=== PATIENT | male | born 1995 | race African-American/Black ===

== ENCOUNTER 2018-06-07 10:02 | Emergency (ER) | payer SELFPAY ==
[2018-06-07] MEDS ORDERED: DEXAMETHASONE 10 MG/ML VIAL ONE (10:25)
--- NOTE | 2018-06-07 11:01 | EDPHYS ---
Physician Documentation [facility] Name: Michelle Escalona Age: 23 yrs Sex: Male : 1995 Arrival Date: 06/07/2018 Time: 10:05 Bed 12 Private MD: None, None ED Physician Jus Bravo HPI: 06/07 10:15 This 23 yrs old Black Male presents to ER via Ambulatory with complaints of Sore Throat.jmm 10:15 The patient presents with sore throat. Onset: The symptoms/episode began/occurred jmm gradually, 2 day(s) ago. Associated signs and symptoms: Pertinent positives: earache. This is a 23 year old male with no chronic medical conditions that presents to the ED with sore throat and eachache beginning 2 days ago. Patient states she awoke this evening with worsening sore throat. Complains of subjective fever. . Historical: - Allergies: 10:09 No Known Allergies; tw2 - Home Meds: 10:09 None [Active]; tw2 - PMHx: 10:09 None; tw2 - PSHx: 10:09 None; tw2 - Immunization history:: Adult Immunizations up to date. - Social history:: Smoking status: Patient uses tobacco products, smokes one-half pack cigarettes per day. - Ebola Screening: : Patient denies travel to an Ebola-affected area in the 21 days before illness onset. ROS: 10:15 Eyes: Negative for injury, pain, redness, and discharge. jmm 10:15 Neck: Negative for injury, pain, and swelling, Cardiovascular: Negative for chest pain, palpitations, and edema, Respiratory: Negative for shortness of breath, cough, wheezing, and pleuritic chest pain, Abdomen/GI: Negative for abdominal pain, nausea, vomiting, diarrhea, and constipation. 10:15 Constitutional: Positive for fever. 10:15 ENT: Positive for ear pain, sore throat. 10:15 All other systems are negative. Exam: 10:15 Constitutional: This is a well developed, well nourished patient who is awake, alert, jmm and in no acute distress. Head/Face: atraumatic. 10:15 Neck: Trachea midline, Supple Chest/axilla: Normal chest wall appearance and motion. Cardiovascular: Regular rate and rhythm. No edema appreciated Respiratory: Normal respirations, no respiratory distress appreciated Abdomen/GI: Non distended, soft Skin: General appearance color normal MS/ Extremity: Moves all extremities, no obvious deformities appreciated, no edema noted to the lower extremities Neuro: Awake and alert, normal gait 10:15 ENT: TM's: erythema, that is mild, bilaterally. 10:15 ENT: Posterior pharynx: erythema, that is mild. Vital Signs: 10:08 BP 140 / 88; Pulse 76; Resp 18; Temp 98.6(O); Pulse Ox 99% on R/A; Pain 8/10; tw2 MDM: 10:15 Patient medically screened. [facility] 11:00 Differential diagnosis: pharyngitis, upper respiratory infection, viral syndrome. Data [facility] reviewed: vital signs, nurses notes, lab test result(s). Counseling: I had a detailed discussion with the patient and/or guardian regarding: the historical points, exam findings, and any diagnostic results supporting the discharge/admit diagnosis, lab results, the need for outpatient follow up, to return to the emergency department if symptoms worsen or persist or if there are any questions or concerns that arise at home. 11:00 Data interpreted: Pulse oximetry: on room air is 99 %. Interpretation: normal. [facility] 06/07 10:13 Order name: Flu tw 06/07 10:13 Order name: Strep tw2 06/07 10:55 Order name: Group A Streptococcus Rapid Sc; Complete Time: 11:00 EDMS 12 10:56 Order name: Influenza Screen (A ; Complete Time: 11:00 EDMS Administered Medications: 10:21 Drug: Dexamethasone 10 mg Route: IM; Site: right deltoid; tw2 11:09 Follow up: Response: No adverse reaction tw2 Disposition: 11:38 Co-signature as Attending Physician, Jus Bravo MD. rn Disposition: 06/07/18 11:01 Discharged to Home. Impression: Acute pharyngitis. - Condition is Stable. - Discharge Instructions: Pharyngitis. - Medication Reconciliation Form, Thank You Letter, Antibiotic Education, Prescription Opioid Use, Work release form form. - Follow up: Private Physician; When: 2 - 3 days; Reason: Recheck today's complaints, Continuance of care, Re-evaluation by your physician. Signatures: Dispatcher [employer] [facility] Puma Coats PA PA jmm Nieto, Roman, MD MD rn Fina Clemens RN RN tw2 Corrections: (The following items were deleted from the chart) 11:09 11:01 06/07/2018 11:01 Discharged to Home. Impression: Acute pharyngitis. Condition is tw2 Stable. Forms are Work release form, Medication Reconciliation Form, Thank You Letter, Antibiotic Education, Prescription Opioid Use. Follow up: Private Physician; When: 2 - 3 days; Reason: Recheck today's complaints, Continuance of care, Re-evaluation by your physician. chandrika
--- NOTE | 2018-06-07 11:01 | ER ---
Nurse's Notes [facility] Name: Michelle Escalona Age: 23 yrs Sex: Male : 1995 Arrival Date: 06/07/2018 Time: 10:05 Bed 12 Private MD: None, None Diagnosis: Acute pharyngitis Presentation: 06/07 10:07 Presenting complaint: Patient states: my throat started hurting Tuesday, and it just got tw2 worse, and my ears hurt. Transition of care: patient was not received from another setting of care. Onset of symptoms was June 07, 2018. Risk Assessment: Do you want to hurt yourself or someone else? Patient reports no desire to harm self or others. Initial Sepsis Screen: Does the patient meet any 2 criteria? No. Patient's initial sepsis screen is negative. Does the patient have a suspected source of infection? No. Patient's initial sepsis screen is negative. Care prior to arrival: None. 10:07 Method Of Arrival: Ambulatory tw2 10:07 Acuity: GLORIA 4 tw2 Historical: - Allergies: 10:09 No Known Allergies; tw2 - Home Meds: 10:09 None [Active]; tw2 - PMHx: 10:09 None; tw2 - PSHx: 10:09 None; tw2 - Immunization history:: Adult Immunizations up to date. - Social history:: Smoking status: Patient uses tobacco products, smokes one-half pack cigarettes per day. - Ebola Screening: : Patient denies travel to an Ebola-affected area in the 21 days before illness onset. Screenin:14 Abuse screen: Denies threats or abuse. Nutritional screening: No deficits noted. tw2 Tuberculosis screening: No symptoms or risk factors identified. Fall Risk None identified. Assessment: 10:13 General: Appears in no apparent distress. Behavior is calm, cooperative, appropriate tw2 for age. Pain: Complains of pain in right ear and left ear and throat. Neuro: Level of Consciousness is awake, alert, obeys commands, Oriented to person, place, time, situation. Cardiovascular: Patient's skin is warm and dry. Respiratory: Airway is patent Respiratory effort is even, unlabored, Respiratory pattern is regular, symmetrical, Breath sounds are clear. Respiratory:. GI: No signs and/or symptoms were reported involving the gastrointestinal system. : No signs and/or symptoms were reported regarding the genitourinary system. EENT: Throat is reddened Reports nasal congestion nasal discharge pain when swallowing. 11:08 Reassessment: Patient appears in no apparent distress at this time. No changes from tw2 previously documented assessment. Patient and/or family updated on plan of care and expected duration. Pain level reassessed. Patient is alert, oriented x 3, equal unlabored respirations, skin warm/dry/pink. Vital Signs: 10:08 BP 140 / 88; Pulse 76; Resp 18; Temp 98.6(O); Pulse Ox 99% on R/A; Pain 8/10; tw2 ED Course: 10:05 Patient arrived in ED. sb2 10:05 None, None is Private Physician. sb2 10: Triage completed. tw2 10:08 Arm band placed on. tw2 10: Fina Clemens, RN is Primary Nurse. tw2 10:10 Puma Coats PA is PHCP. [facility] 10:10 Jus Bravo MD is Attending Physician. [facility] 10:14 Bed in low position. Call light in reach. tw2 10:15 Strep Sent. tw2 10:15 Flu Sent. tw2 11:08 No provider procedures requiring assistance completed. Patient did not have IV access tw2 during this emergency room visit. Administered Medications: 10:21 Drug: Dexamethasone 10 mg Route: IM; Site: right deltoid; tw2 11:09 Follow up: Response: No adverse reaction tw2 Outcome: 11:01 Discharge ordered by . [facility] 11:08 Discharged to home ambulatory. tw2 11:08 Condition: stable 11:08 Discharge instructions given to patient, Instructed on discharge instructions, follow up and referral plans. Demonstrated understanding of instructions, follow-up care. 11:09 Patient left the ED. tw2 Signatures: Puma Coats PA PA jmm Wise, Tara, RN RN tw2 Yin Villareal sb2
== END 2018-06-07 11:09 | disposition home or self-care (01) ==
LOC: ER 10:02
DX: J02.9 Acute pharyngitis, unspecified (principal); F17.210 Nicotine dependence, cigarettes, uncomplicated
CPT/HCPCS: 87070; 87081; 87804; 96372; 99283; J1100

== ENCOUNTER 2021-10-22 17:59 | Emergency (ER) | payer SELFPAY ==
--- OUTSIDE RECORDS SUMMARY | 2021-10-22 18:02 | XMS REPORT | Continuity of Care Document ---
:[address] [facility] t Address [address] [place] [address] Care Team Providers Name Role Phone Provider, Urgent Care Attending Clinician Unavailable Tgean [employer] SPECIALIST Attending Clinician TEGAN Attending Clinician Unavailable Doctor Unassigned, Name Attending Clinician Unavailable Payers Payer Name Policy Type Policy Number Effective Date Expiration Date S ource Problems Condition Condition Condition Status Onset Resolution Last Treating Co mments Source Name Details Category Date Date Treatment Clinician Date No known No known Disease Unive rs active active ity of problems problems [facility] Allergies, Adverse Reactions, Alerts Allergy Allergy Status Severity Reaction(s) Onset Inactive Treating Comm ents Source Name Type Date Date Clinician NO KNOWN Drug Active Univers ALLERGIE Class ity of S [facility] Social History Social Habit Start Date Stop Date Quantity Comments Source Exposure to Not sure [facility] SARS-CoV-2 (event) [facility] Assigned At [birth year] [facility] 00:00:00 00:00:00 [facility] Smoking Status Start Date Stop Date Source Unknown if ever smoked [facility] Medications Ordered Filled Start Stop Current Ordering Indication Dosage Frequency Signature Comments Components Source Medication Medication Date Date Medication? Clinician (SIG) Name Name benzonatate 2018-0 Yes 100mg Take 1 Uni vers 100 mg 4-06 capsule by ity of capsule 00:00: mouth 3 [place] (three) Medical times Branch daily as needed for Cough. benzonatate 2018-0 Yes 100mg Take 1 Uni vers 100 mg 4-06 capsule by ity of capsule 00:00: mouth 3 [place] 00 (three) Medical times [place] daily as needed for Cough. benzonatate 2018-0 Yes 100mg Take 1 Uni vers 100 mg 4-06 capsule by ity of capsule 00:00: mouth 3 [place] [id number] (three) Medical times [place] daily as needed for Cough. Vital Signs Vital Name Observation Time Observation Value Comments Source Systolic blood 2020-09-14 15:02:00 124 mm[Hg] Univer sity of pressure [facility] Diastolic blood 2020-09-14 15:02:00 76 mm[Hg] Unive rsity of [facility] Heart rate 2020-09-14 15:02:00 75 /min [facility] Body temperature 2020-09-14 15:02:00 [facility]17 [facility] height 2020-09-14 15:02:00 172.7 cm [facility] Body weight 2020-09-14 15:02:00 106.595 kg [facility] BMI 2020-09-14 15:02:00 35.73 kg/m2 [facility] Oxygen saturation in 2020-09-14 15:02:00 97 /min [facility] Arterial blood by [facility] Pulse oximetry [place] Procedures Procedure Date / Time Performed Performing Clinician Sourc e POCT URINALYSIS 2020-09-14 15:22:00 [facility] POCT GRP A STREP 2020-09-14 15:18:00 [facility] (MOLECULAR) [facility] Encounters Start End Encounter Admission Attending Care Care Encounter Source Date/Time Date/Time Type Type Clinicians Facility Department ID 2020-09-14 2020-09-14 Urgent Provider, [facility] [id number] Univers 09:59:17 10:19:[address] [facility] [id number] ity [facility] [id number] Luis Armando as Professio [phone] Sd dical [facility] [address] 2020-09-14 2020-09-14 Outpatient R TEGAN [facility] [id number] Univers 10:00:00 10:00:00 [facility] 2020-09-14 2020-09-14 Letter Doctor RUSSELL [id number] Univers 00:00:00 00:00:00 (Out) Unassigned, JANA [id number] ity of [place] [facility] [id number] Luis Armando as [phone] [address] 2020-09-14 2020-09-14 Letter Doctor YVONNE [id number] Univers 00:00:00 00:00:00 (Out) Unassigned, JANA [id number] ity of [place] [facility] [id number] Luis Armando as [phone] [address] Results Test Description Test Time Test Comments Results Result Comments Source POCT GRP A STREP (MOLECULAR) 2020-09-14 15:26:00 Test Item Value Reference Range Interpretation Comme nts POCT GP A STREP (test code = Negative Negative - Negative 10476-4) SHI (test code = SHI) accurate development and interpretation of all internal controls Lab Interpretation (test code = Normal 73475-3) [facility] SPECIFIC [id number] 15:25:00 Test Item Value Reference Range Interpretation Comments POCT U SP GRAV (test 1.005 mg/dl 1.005-1.025 code = 3255) POCT PH U (test code = 7 mg/dl 5-8 3254) POCT U LEUK EST (test Negative Negative - code = 3263) Negative POCT U NIT (test code Negative Negative - = 3262) Negative POCT U PROT (test code Negative Negative - = 3259) Negative POCT U GLU (test code Negative Negative - = 3256) Negative POCT U KETONE (test Negative Negative - code = 3258) Negative POCT U UROBILI (test Normal 0.2-1 code = 3260) POCT U BILI (test code Negative Negative - = 3261) Negative POCT U BLD (test code Negative Negative - = 3257) Negative POCT U COLOR (test Yellow code = 3266) POCT U APPEAR (test Clear code = 3267) SHI (test code = SHI) accurate development and interpretation of all internal controls Lab Interpretation Normal (test code = 02218-0) [facility]
[2021-10-22 18:34] LABS: Urine Blood Negative (Negative); Urine Glucose Negative (Negative); Urine Protein Negative (Negative)
[2021-10-22 18:58] LABS: Urine Bacteria NONE SEEN /HPF (NONE SEEN); Urine RBC NONE SEEN /HPF (NONE SEEN)
[2021-10-22 19:01] LABS: Hematocrit 42.9 % (39.6-49.0); Lymphocytes % 28.9 % (15.3-44.8); MPV 10.3 fL (7.6-11.3); RBC Red Blood Cell Count 4.93 M/uL (4.33-5.43)
[2021-10-22 19:18] LABS: BUN Blood Urea Nitrogen 17 mg/dL (7-18); Bicarbonate 29 mmol/L (21-32); Glucose Level 92 mg/dL (74-106); Potassium 3.8 mmol/L (3.5-5.1); Sodium Level 137 mmol/L (136-145)
--- NOTE | 2021-10-22 19:54 | RAD REPORT ---
EXAM DESCRIPTION: US - Scrotum Testicles - 10/22/2021 7:44 pm CLINICAL HISTORY: Testicular pain COMPARISON: None FINDINGS: Right testicle measures 4.8 x 2 x 3 centimeters. Echotexture is homogeneous. Normal blood flow Left testicle measures 4.4 x 2.1 x 2.7 centimeters. Echotexture is homogeneous. Normal blood flow The epididymides are normal in size and echotexture. Normal blood flow is seen. 3 millimeter left spermatocele Increased echogenicity is present within the right inguinal region IMPRESSION: Increased echogenicity is present within the right inguinal region suspicious for a fat containing hernia
--- NOTE | 2021-10-22 20:10 | EDPHYS ---
Physician Documentation [facility] Name: Michelle Escalona Age: 26 yrs Sex: Male : 1995 Arrival Date: 10/22/2021 Time: 18:02 Bed 19 Private MD: ED Physician Ramos Corado HPI: 10/22 18:50 This 26 yrs old Black Male presents to ER via Ambulatory with complaints of Groin Pain. la1 18:50 Onset: The symptoms/episode began/occurred 1 week(s) ago. Associated signs and la1 symptoms: Pertinent negatives: dysuria, fever, vomiting. Modifying factors: The patient symptoms are alleviated by nothing, the patient symptoms are aggravated by nothing. The patient has experienced a previous episode, approximately 10 years ago. Pt reports "burning" in testicular area, urinary frequency. Similar episode 10 years ago that resolved spontaneously. Historical: - Allergies: 18:13 No Known Allergies; ab2 - PMHx: 18:13 None; ab2 - PSHx: 18:13 None; ab2 - Immunization history:: Adult Immunizations up to date. - Social history:: Smoking status: Patient reports the use of cigarette tobacco products, smokes one pack cigarettes per day. ROS: 18:52 Constitutional: Negative for fever, chills, and weight loss, Eyes: Negative for injury, la1 pain, redness, and discharge, ENT: Negative for injury, pain, and discharge, Neck: Negative for injury, pain, and swelling, Cardiovascular: Negative for chest pain, palpitations, and edema, Respiratory: Negative for shortness of breath, cough, wheezing, and pleuritic chest pain. 18:52 MS/Extremity: Negative for injury and deformity, Skin: Negative for injury, rash, and discoloration, Neuro: Negative for headache, weakness, numbness, tingling, and seizure. 18:52 Abdomen/GI: Positive for abdominal pain, Negative for nausea and vomiting, diarrhea, constipation. 18:52 : Positive for testicular pain Exam: 18:52 Constitutional: This is a well developed, well nourished patient who is awake, alert, la1 and in no acute distress. Head/Face: Normocephalic, atraumatic. Eyes: Pupils equal round and reactive to light, ENT: Mucous membranes moist. Neck: Supple, full range of motion without nuchal rigidity, or vertebral point tenderness. No Meningismus. Chest/axilla: Normal chest wall appearance and motion. Nontender with no deformity. No lesions are appreciated. Cardiovascular: Regular rate and rhythm with a normal S1 and S2. No gallops, murmurs, or rubs. Normal PMI, no JVD. No pulse deficits. Respiratory: Lungs have equal breath sounds bilaterally, clear to auscultation Abdomen/GI: Soft, non-tender, with normal bowel sounds. Skin: Warm, dry with normal turgor. Normal color with no rashes, no lesions, and no evidence of cellulitis. MS/ Extremity: Pulses equal, no cyanosis. Neurovascular intact. Full, normal range of motion. 18:52 : Male external genitalia: normal, Circumcision noted. cremasteric reflex present right, present left, erythema, is absent, penile discharge, is absent, swelling: is not appreciated, tenderness, is not appreciated, ulceration, is not present. Vital Signs: 18:09 BP 139 / 82; Pulse 84; Resp 17; Temp 97.7; Pulse Ox 99% on R/A; Weight 97.52 kg; Height ab2 5 ft. 8 in. (172.72 cm); Pain 8/10; 19:17 BP 133 / 72; Pulse 71; Resp 16; Pulse Ox 99% on R/A; kd3 18:09 Body Mass Index 32.69 (97.52 kg, 172.72 cm) ab2 MDM: 18:15 Patient medically screened. la1 20:08 Data reviewed: vital signs, nurses notes. Data interpreted: Pulse oximetry: on room air la1 is 99 %. Interpretation: normal. Counseling: I had a detailed discussion with the patient and/or guardian regarding: the need for outpatient follow up, a general surgeon. Special discussion: Based on the patient's Hx, exam, and Dx evaluation, there is no indication for emergent surgery or inpatient Tx. It is understood by the patient/guardian that if the Sx's persist or worsen they need to return immediately for re-evaluation. 10/22 18:25 Order name: CBC with Diff; Complete Time: 19:22 la1 10/22 18:25 Order name: BMP; Complete Time: : la1 10/22 18:25 Order name: Scrotum Testicles US; Complete Time: 19:58 la1 10/22 18:25 Order name: IV; Complete Time: 19:00 la1 10/22 18:25 Order name: Urine Microscopic Only; Complete Time: 19:22 la1 10/22 18:34 Order name: Urine Dipstick-Ancillary; Complete Time: 18:40 EDNH 10/22 18:25 Order name: Urine Dipstick-Ancillary (obtain specimen); Complete Time: 19:00 la1 Administered Medications: No medications were administered Disposition Summary: 10/22/21 20:10 Discharge Ordered Location: Home la1 Problem: new la1 Symptoms: have improved la1 Condition: Stable la1 Diagnosis - Unilateral inguinal hernia, without obstruction or gangrene la1 Followup: la1 - With: Vasyl Ba MD - When: 5 - 6 days - Reason: Recheck today's complaints, Re-evaluation by your physician Discharge Instructions: - Discharge Summary Sheet la1 - Inguinal Hernia, Adult, [id number] la1 - Inguinal Hernia, Adult la1 Forms: - Medication Reconciliation Form la1 - Thank You Letter la1 Signatures: Dispatcher [employer] Dilan Burnham, SCAN COORDINATOR-C SCAN COORDINATOR-Cla1 Wily Salazar
--- NOTE | 2021-10-22 20:10 | ER ---
Nurse's Notes [facility] Name: Michelle Escalona Age: 26 yrs Sex: Male : 1995 Arrival Date: 10/22/2021 Time: 18:02 Bed 19 Private MD: Diagnosis: Unilateral inguinal hernia, without obstruction or gangrene Presentation: 10/22 18:09 Chief complaint: Patient states: "For about 2 weeks my testicles have been hurting and ab2 im peeing more often. It feels like there's icy hot down there, it adame." Pt c/o testicular and groin pain. Pt denies any burning on urination, any blood in urine and penile discharge. Pt denies any injury to area. Pt states this happened before about 10 years ago. Coronavirus screen: Vaccine status: Patient reports being unvaccinated. Client denies travel out of the [place] in the last 14 days. At this time, the client does not indicate any symptoms associated with coronavirus-19. Ebola Screen: Patient negative for fever greater than or equal to 101.5 degrees Fahrenheit, and additional compatible Ebola Virus Disease symptoms Patient denies exposure to infectious person. Patient denies travel to an Ebola-affected area in the 21 days before illness onset. No symptoms or risks identified at this time. Initial Sepsis Screen: Does the patient meet any 2 criteria? No. Patient's initial sepsis screen is negative. Does the patient have a suspected source of infection? No. Patient's initial sepsis screen is negative. Risk Assessment: Do you want to hurt yourself or someone else? Patient reports no desire to harm self or others. Onset of symptoms is unknown. 18:09 Method Of Arrival: Ambulatory ab2 18:09 Acuity: GLORIA 3 ab2 Triage Assessment: 18:13 General: Appears in no apparent distress. uncomfortable, Behavior is calm, cooperative, ab2 appropriate for age. Pain: Complains of pain in pelvis. Neuro: Level of Consciousness is awake, alert, obeys commands, Oriented to person, place, time, situation, Appropriate for age Network Infrastructure Architect are equal bilaterally Moves all extremities. Gait is steady. Respiratory: Airway is patent Respiratory effort is even, unlabored, Respiratory pattern is regular, symmetrical. : Reports pain testicle, Denies burning with urination, discharge. Historical: - Allergies: 18:13 No Known Allergies; ab2 - PMHx: 18:13 None; ab2 - PSHx: 18:13 None; ab2 - Immunization history:: Adult Immunizations up to date. - Social history:: Smoking status: Patient reports the use of cigarette tobacco products, smokes one pack cigarettes per day. Screenin:16 Abuse screen: Denies threats or abuse. Denies injuries from another. Nutritional kd3 screening: No deficits noted. Tuberculosis screening: No symptoms or risk factors identified. Fall Risk IV access (20 points). Assessment: 19:16 General: Appears in no apparent distress. Behavior is calm, cooperative, appropriate kd3 for age. Pain: Complains of pain in pelvis. Neuro: Level of Consciousness is awake, alert, obeys commands, Oriented to person, place, time, situation. Cardiovascular: Patient's skin is warm and dry. Respiratory: Airway is patent Trachea midline Respiratory effort is even, unlabored, Respiratory pattern is regular, symmetrical. GI: Bowel sounds present X 4 quads. Vital Signs: 18:09 BP 139 / 82; Pulse 84; Resp 17; Temp 97.7; Pulse Ox 99% on R/A; Weight 97.52 kg; Height ab2 5 ft. 8 in. (172.72 cm); Pain 8/10; 19:17 BP 133 / 72; Pulse 71; Resp 16; Pulse Ox 99% on R/A; kd3 18:09 Body Mass Index 32.69 (97.52 kg, 172.72 cm) ab2 ED Course: 18:02 Patient arrived in ED. as 18:13 Triage completed. ab2 18:14 Dilan Cherry FNP-C is PHCP. la1 18:14 Ramos Corado MD is Attending Physician. la1 18:14 Arm band placed on right wrist. ab2 18:17 Rashid Albarado, SHWETA is Primary Nurse. bp 19:00 Inserted saline lock: 20 gauge in right antecubital area, using aseptic technique. bp Blood collected. 19:16 Placed in gown. Bed in low position. Call light in reach. kd3 19:45 Scrotum Testicles US In Process Unspecified. EDMS 20:09 Vasyl Ba MD is Referral Physician. la1 20:28 No provider procedures requiring assistance completed. IV discontinued, intact, kd3 bleeding controlled, No redness/swelling at site. Pressure dressing applied. Administered Medications: No medications were administered Outcome: 20:10 Discharge ordered by . la1 20:28 Discharged to home ambulatory. kd3 20:28 Condition: stable 20:28 Discharge instructions given to patient, Instructed on discharge instructions, follow up and referral plans. Demonstrated understanding of instructions, follow-up care. 20:31 Patient left the ED. kd3 Signatures: Dispatcher [employer] EDMD Olive Montano Lee, SOCIAL SECURITY ASSESSOR-C SOCIAL SECURITY ASSESSOR-Cla1 Rashid Albarado, RN RN bp Eda Sánchez RN RN kd3 Wily Salazar ab2 Corrections: (The following items were deleted from the chart) 18:14 18:09 Chief complaint: Patient states: "For about 2 weeks my testicles have been ab2 hurting and im peeing more often. It feels like there's icy hot down there, it adame." Pt c/o testicular and groin pain. Pt denies any burning on urination, any blood in urine and penile discharge. ab2
[2021-10-22 21:21] VITALS: TEMP 97.7; O2SAT 99
[2021-10-22 21:22] VITALS: BP 133/72
== END 2021-10-22 20:31 | disposition home or self-care (01) ==
LOC: ER 17:59
DX: K40.90 Unilateral inguinal hernia, without obstruction or gangrene, not specified as recurrent (principal); F17.210 Nicotine dependence, cigarettes, uncomplicated
CPT/HCPCS: 36415; 76870; 80048; 81003; 81015; 85025; 99283

== ENCOUNTER 2024-09-06 21:48 | Emergency (ER) | payer OTHER, SELFPAY ==
[2024-09-06] MEDS ORDERED: FAMOTIDINE 20 MG/2 ML VIAL IV ONE (23:36)
[2024-09-06] MEDS ORDERED: ASPIRIN 81 MG CHEWABLE TABLET ONE (23:36)
[2024-09-06 23:48] LABS: Absolute Basophils 0.1 K/uL (0-0.5); Absolute Eosinophils 0.2 K/uL (0-0.5); Absolute Lymphocytes (CBC) 3.7 K/uL (0.7-4.9); Absolute Monocytes 0.7 K/uL (0.1-1.3); Absolute Neutrophil 5.6 K/uL (1.8-8.0); Basophils % 0.7 % (0-1.3); Eosinophils % 2.3 % (0-4.4); Hematocrit 43.8 % (39.6-49.0); Hemoglobin 15.6 g/dL (13.6-17.9); Lymphocytes % 35.5 % (15.3-44.8); MCH 30.7 pg (27.0-35.0); MCHC 35.7 g/dL (32.0-36.0); MPV 10.8 fL (7.6-11.3); Monocytes % 7.1 % (3.3-12.3); Neutrophils % 54.4 % (41.7-73.7); Nucleated Red Blood Cells % 0.1 % (0-0); Platelets 168 thou/uL (152-406); RBC Red Blood Cell Count 5.09 M/uL (4.33-5.43); Red Cell Distribution Width 13.4 % (12.1-15.2)
[2024-09-06 23:55] LABS: PT Prothrombin Time 11.8 SECONDS (10.0-13.0); Protime INR 1.04
[2024-09-07 00:09] LABS: ALT/SGPT 62 U/L (16-61); AST/SGOT 34 U/L (15-37); Albumin/Globulin Ratio 1.2 (1.1-1.8); Alkaline Phosphatase 72 U/L (45-117); Anion Gap 10.9 mEq/L (5.0-15.0); BUN Blood Urea Nitrogen 17 mg/dL (7-18); Bicarbonate 26 mEq/L (21-32); Bilirubin Total 0.6 mg/dL (0.2-1.0); Globulin 3.3 g/dL (2.3-3.5); Glomerular Filtration Rate 86 ml/min (=/>90); Glucose Level 95 mg/dL (74-106); Magnesium 2.5 mg/dL (1.6-2.4); NT PRO-BNP 19 pg/mL (<125); Potassium 3.9 mEq/L (3.5-5.1); Protein, Total 7.3 g/dL (6.4-8.2); Sodium Level 136 mEq/L (136-145); Troponin High Sensitivity 3.1 pg/mL (<58.9)
[2024-09-07 00:15] LABS: Bilirubin Direct < 0.2 mg/dL (0-0.2); Bilirubin Indirect, Calculated 0.4 mg/dL (0.2-0.8)
[2024-09-07 00:21] LABS: Influenza A Ag Negative; Influenza B Ag Negative; SARS-CoV-2 Antigen Rapid Res Negative (Negative)
--- NOTE | 2024-09-07 00:31 | ER ---
Nurse's Notes [facility] Name: Michelle Escalona Age: 29 yrs Sex: Male : 1995 Arrival Date: 09/06/2024 Time: 21:48 Bed 25 Private MD: Diagnosis: Viral infection, unspecified;Chest pain, unspecified Presentation: 09/06 22:48 Chief complaint: Patient states: BODYACHES FOR 1 WEEK, CP (BURNING) BEGAN TODAY , br2 DENIES N/V/D/F. Coronavirus screen: Client denies travel out of the [place] in the last 14 days. Ebola Screen: Patient denies exposure to infectious person. Patient denies travel to an Ebola-affected area in the 21 days before illness onset. Initial Sepsis Screen: Does the patient meet any 2 criteria? No. Patient's initial sepsis screen is negative. Does the patient have a suspected source of infection? No. Patient's initial sepsis screen is negative. Risk Assessment: Do you want to hurt yourself or someone else? Patient reports no desire to harm self or others. 22:48 Method Of Arrival: Ambulatory br2 22:48 Acuity: GLORIA 3 br2 Triage Assessment: 22:51 General: Appears in no apparent distress. comfortable, Behavior is calm, cooperative. br2 Pain: Complains of pain in mid-sternal area, right breast and left breast. Cardiovascular: Reports chest pain. Historical: - Allergies: 22:51 No Known Allergies; br2 - Immunization history:: Adult Immunizations not up to date. - Infectious Disease History:: Denies. - Social history:: Smoking status: Patient reports the use of cigarette tobacco products, smokes one-half pack cigarettes per day, Reported history of juuling and/or vaping. Patient uses alcohol, on a daily basis. Screenin:45 [facility] ED Fall Risk Assessment (Adult) History of falling in the last 3 months, me1 including since admission No falls in past 3 months (0 pts) Confusion or Disorientation No (0 pts) Intoxicated or Sedated No (0 pts) Impaired Gait No (0 pts) Mobility Assist Device Used No (0 pt) Altered Elimination No (0 pt) Score/Fall Risk Level 0 - 2 = Low Risk Maintained a safe environment, Provided non-skid footwear, Hourly rounding (assess needs \T\ fall precautionary measures) done. Abuse screen: Denies threats or abuse. Nutritional screening: No deficits noted. Tuberculosis screening: No symptoms or risk factors identified. Assessment: 22:45 General: Appears in no apparent distress. well groomed, well developed, well nourished, me1 Behavior is calm, cooperative, appropriate for age, Reports BODYACHES FOR 1 WEEK, CP (BURNING) BEGAN TODAY , DENIES N/V/D/F. Pain: Complains of pain in chest and left breast and right breast and mid-sternal area Pain does not radiate. Pain currently is 6 out of 10 on a pain scale. Quality of pain is described as burning, Pain began today. Neuro: Level of Consciousness is awake, alert, obeys commands, Oriented to person, place, time, situation, Appropriate for age. Cardiovascular: Reports chest pain, Patient's skin is warm and dry. Respiratory: Airway is patent Respiratory effort is even, unlabored, Respiratory pattern is regular, symmetrical. GI: No signs and/or symptoms were reported involving the gastrointestinal system. : No signs and/or symptoms were reported regarding the genitourinary system. EENT: No signs and/or symptoms were reported regarding the EENT system. Derm: Skin is intact, is healthy with good turgor, Skin is pink, warm \T\ dry. Musculoskeletal: No signs and/or symptoms reported regarding the musculoskeletal system. Vital Signs: 22:48 BP 158 / 108; Pulse 79; Resp 15; Temp 98; Pulse Ox 97% ; Pain 7/10; br2 23:51 BP 139 / 90; Pulse 67; Resp 16; Pulse Ox 97% ; me1 22:48 Pain Scale: Adult br2 ED Course: 21:56 Patient arrived in ED. gm2 21:58 Janeth Perez PA-C is PHCP. sb4 21:58 Conrad Madden MD is Attending Physician. sb4 22:41 Rhonda Rock, SHWETA is Primary Nurse. me1 22:45 No provider procedures requiring assistance completed. Patient maintains SpO2 me1 saturation greater than 95% on room air. 22:45 Patient has correct armband on for positive identification. Bed in low position. Call me1 light in reach. Side rails up X 1. Provided Education on: POC. Verbalized understanding.. Client placed on continuous cardiac and pulse oximetry monitoring. NIBP monitoring applied. environmental monitoring specialist on. Pulse ox on. NIBP on. 22:51 Triage completed. br2 23:24 Inserted saline lock: 20 gauge in right antecubital area, using aseptic technique. hw Blood collected. Flushed with 10 mL NS. 23:24 COVID swab sent to lab. Flu and/or RSV swab sent to lab. hw 23:39 XRAY Chest (1 view) In Process Unspecified. EDMS 23:40 EKG done, by ED staff, reviewed by Janeth Perez PA-C. me1 09/07 00:58 IV discontinued, intact, bleeding controlled, No redness/swelling at site. Pressure br2 dressing applied. Administered Medications: 09/06 23:40 Drug: Aspirin PO Chewable Tablet 324 mg PO once; 81 mg tablets x 4 Route: PO; me1 23:51 Follow up: Response: No adverse reaction me1 23:40 Drug: Famotidine IVP 20 mg IVP once; dilute with 10 mL 0.9% NaCl; give over 2 minutes me1 Route: IVP; Site: right antecubital; 23:51 Follow up: Response: No adverse reaction me1 09/07 00:30 Follow up: Response: No adverse reaction br2 Medication: 09/06 22:45 VIS not applicable for this client. me1 Outcome: 09/07 00:30 Discharge ordered by . sb4 00:50 Discharged to home ambulatory, br2 00:50 Condition: improved 00:50 Discharge instructions given to patient, Instructed on discharge instructions, follow up and referral plans. Demonstrated understanding of instructions, follow-up care, 01:10 Patient left the ED. br2 Signatures: Dispatcher [employer] Janeth Mobley PA-C PAAnna sb4 Rhonda Rock RN RN me1 Shasha Kumar 2 Ifeoma Mcneill RN RN br2 Marie Rueda Corrections: (The following items were deleted from the chart) 09/06 23:47 22:48 Chief complaint: Patient states: BODYACHES FOR 1 WEEK, CP (BURNING) BEGAN TODAY , me1 DENIES N/V/D/F br2
--- NOTE | 2024-09-07 00:31 | EDPHYS ---
Physician Documentation [facility] Name: Michelle Escalona Age: 29 yrs Sex: Male : 1995 Arrival Date: 09/06/2024 Time: 21:48 Bed 25 Private MD: ED Physician Conrad Madden HPI: 09/07 00:17 This 29 yrs old Black Male presents to ER via Ambulatory with complaints of Chest sb4 Tightness, General Weakness. 00:17 Patient reports that he has been experiencing fatigue and malaise for about 1 week now. sb4 States that this evening he started experiencing right sided chest tightness that feels like burning. Denies any URI symptoms or prior episodes of this. Does not smoke. Historical: - Allergies: 09/06 22:51 No Known Allergies; br2 - Immunization history:: Adult Immunizations not up to date. - Infectious Disease History:: Denies. - Social history:: Smoking status: Patient reports the use of cigarette tobacco products, smokes one-half pack cigarettes per day, Reported history of juuling and/or vaping. Patient uses alcohol, on a daily basis. ROS: 09/07 00:17 Abdomen/GI: Negative for abdominal pain, nausea, vomiting, diarrhea, and constipation, sb4 Constitutional: Positive for fatigue, malaise, Cardiovascular: Positive for chest pain, All other systems are negative, Exam: 00:17 Constitutional: This is a well developed, well nourished patient who is awake, alert, sb4 and in no acute distress. Head/Face: Normocephalic, atraumatic. Eyes: Extra-ocular motions intact. Periorbital areas with no swelling, redness, or edema. ENT: Mucous membranes moist. Cardiovascular: Regular rate and rhythm with a normal S1 and S2. Respiratory: No increased work of breathing, no retractions or nasal flaring. Abdomen/GI: Soft, non-tender, no distension. Skin: Warm, dry with normal turgor. Normal color with no rashes, no lesions, and no evidence of cellulitis. 00:17 Respiratory: Breath sounds: are clear throughout, Vital Signs: 09/06 22:48 BP 158 / 108; Pulse 79; Resp 15; Temp 98; Pulse Ox 97% ; Pain 7/10; br2 23:51 BP 139 / 90; Pulse 67; Resp 16; Pulse Ox 97% ; me1 22:48 Pain Scale: Adult br2 MDM: 22:01 Medical Screening Exam initiated sb4 09/07 00:30 Data reviewed: vital signs, nurses notes, lab test result(s), EKG, radiologic studies, sb4 and as a result, I will discharge patient. Counseling: I had a detailed discussion with the patient and/or guardian regarding the historical points, exam findings, and any diagnostic results supporting the discharge/admit diagnosis, the presence of at least one elevated blood pressure reading (>120/80) during this emergency department visit, lab results, radiology results, the need for outpatient follow up, for definitive care, to return to the emergency department if symptoms worsen or persist or if there are any questions or concerns that arise at home. 09/06 23:07 Order name: Basic Metabolic Panel; Complete Time: 00:16 sb4 09/06 23:07 Order name: CBC with Diff; Complete Time: 23:54 sb4 09/06 23:07 Order name: LFT's; Complete Time: 00:16 sb4 09/06 23:07 Order name: Magnesium; Complete Time: 00:16 sb4 09/06 23:07 Order name: NT PRO-BNP; Complete Time: 00:16 sb4 09/06 23:07 Order name: PT-INR; Complete Time: 23:56 sb4 09/06 23:07 Order name: Troponin HS; Complete Time: 00:16 sb4 09/06 23:07 Order name: COVID-19 Ag + Flu A+B Ag; Complete Time: 00:21 sb4 09/06 23:07 Order name: XRAY Chest (1 view) sb4 09/06 23:07 Order name: Cardiac monitoring; Complete Time: 23:28 sb4 09/06 23:07 Order name: EKG - Nurse/Tech; Complete Time: 23:28 sb4 09/06 23:07 Order name: IV Saline Lock; Complete Time: 23:28 sb4 09/06 23:07 Order name: Labs collected and sent; Complete Time: 23:26 sb4 09/06 23:07 Order name: O2 Per Protocol; Complete Time: 23:28 sb4 09/06 23:07 Order name: O2 Sat Monitoring; Complete Time: 23:28 sb4 EC/06 23:32 Rate is 73 beats/min. Rhythm is regular, Normal Sinus Rhythm. SC interval is normal at sb4 140 msec. QRS interval is normal at 88 msec. QT interval is normal at 372 msec. No Q waves. T waves are Normal. No ST changes noted. Clinical impression: Normal ECG. Interpreted by me. Reviewed by me. Administered Medications: 23:40 Drug: Aspirin PO Chewable Tablet 324 mg PO once; 81 mg tablets x 4 Route: PO; me1 23:51 Follow up: Response: No adverse reaction me1 23:40 Drug: Famotidine IVP 20 mg IVP once; dilute with 10 mL 0.9% NaCl; give over 2 minutes me1 Route: IVP; Site: right antecubital; 23:51 Follow up: Response: No adverse reaction me1 09/07 00:30 Follow up: Response: No adverse reaction br2 Disposition: 21:28 Co-signature as Attending Physician, Conrad Madden MD I agree with the assessment sp4 and plan of care. I reviewed the patient's care provided by the Advanced Practice Provider and agree with the diagnosis and treatment plan. Disposition Summary: 09/07/24 00:30 Discharge Ordered Notes: Location: Home sb4 Problem: new sb4 Symptoms: have improved sb4 Condition: Stable sb4 Diagnosis - Viral infection, unspecified sb4 - Chest pain, unspecified sb4 Followup: sb4 - With: Emergency Department - When: As needed - Reason: Trouble breathing, Worsening of condition Discharge Instructions: - Discharge Summary Sheet sb4 - Nonspecific Chest Pain, Adult, [id number] sb4 - Viral Illness, Adult sb4 Forms: - Patient Portal Instructions sb4 - Leadership Thank You Letter sb4 Signatures: Dispatcher [employer] EDJaneth Salazar PA-C PA-C sb4 Conrad Madden MD MD sp4 Rhonda Rock, SHWETA RN me1 Ifeoma Mcneill RN RN br2 Corrections: (The following items were deleted from the chart) 09/06 23:07 23:07 BASIC METABOLIC PANEL+C.LAB.BRZ ordered. EDMS EDMS 23: 23:07 CBC+H.LAB.BRZ ordered. EDMS EDMS 23:07 23:07 HEPATIC FUNCTION+C.LAB.BRZ ordered. EDMS EDMS 23:07 23:07 MAGNESIUM+C.LAB.BRZ ordered. EDMS EDMS 23: 23:07 PROBNP+C.LAB.BRZ ordered. EDMS EDMS : 23:07 PROTIME (+INR)+COAG.LAB.BRZ ordered. EDMS EDMS : 23:07 Troponin High Sensitivity+C.LAB.BRZ ordered. EDMS EDMS 23: 23:07 COVID-19 Ag + Flu A+B Ag+I.LAB.BRZ ordered. EDMS EDMS : 23:08 Chest Single View+RAD.RAD.BRZ ordered. EDMS EDMS
[2024-09-07 02:07] VITALS: TEMP 98; O2SAT 97
[2024-09-07 02:13] VITALS: BP 139/90
--- NOTE | 2024-09-07 05:46 | RAD REPORT ---
EXAM: Chest Single View CLINICAL INDICATION: 29-year-old male with chest pain. TECHNIQUE: Single view, AP portable chest was obtained. COMPARISON: None. FINDINGS: Unremarkable cardiac and mediastinal silhouette. Heart size is normal. Lungs are clear without focal opacity, pneumothorax or pleural effusions. The visualized bones are within normal limits. IMPRESSION: No acute pulmonary abnormalities. Electronically signed by: Maddy Gaston MD 09/07/2024 12:00 AM [facility] Due to temporary technical issues with the PACS/Entrec reporting system, reports are being alex d by the in-house radiologist without review as a courtesy to ensure prompt reporting the interpreting radiologist is fully responsible for the content of the report. Transcribed Date/Time: 09/07/2024 5:45 AM
== END 2024-09-07 01:10 | disposition home or self-care (01) ==
LOC: ER 21:48
DX: B34.9 Viral infection, unspecified (principal); F17.210 Nicotine dependence, cigarettes, uncomplicated; Z11.52 Encounter for screening for COVID-19
CPT/HCPCS: 36415; 71045; 80048; 80076; 83735; 83880; 84484; 85025; 85610; 87428; 93005; 96374; 99285